=== PATIENT | male | born 1970 | race Caucasian/White ===

== ENCOUNTER 2022-08-05 10:41 | Emergency (ER) | payer BC ==
--- NOTE | 2022-08-05 12:40 | ED ---
General Adult HPI - General Chief complaint: Extremity Injury, Lower Stated complaint: R leg pain sent by Time Seen by Provider: 08/05/22 12:00 Source: patient, RN notes reviewed, old records reviewed Mode of arrival: ambulatory Limitations: no limitations - History of Present Illness Initial comments: This is a 51-year-old male who presents emergency Department complaining that he fell on his right knee and he complains of left knee pain where there is abrasion of just above his kneecap. Patient also complains of right calf pain. Patient states she's been having calf Spasms in the leg for years but because it's tender his support assistant suggested he come in and get an ultrasound. Patient denies any difficulty breathing chest pain. Patient denies any other issues at this time. - Related Data Home Medications Medication Instructions Recorded Confirmed Atorvastatin [Lipitor] 20 mg PO HS 08/05/22 08/05/22 DULoxetine HCL [Cymbalta] 30 mg PO BID 08/05/22 08/05/22 HYDROcodone/APAP 5-325MG [[place] 1 tab PO BID PRN 08/05/22 08/05/22 5-325] Lubiprostone [Amitiza] 24 mcg PO BID 08/05/22 08/05/22 Pregabalin [Lyrica] 50 mg PO BID 08/05/22 08/05/22 allopurinoL 100 mg PO HS 08/05/22 08/05/22 amLODIPine [Norvasc] 10 mg PO HS 08/05/22 08/05/22 glipiZIDE [Glucotrol] 10 mg PO AC-SUPPER 08/05/22 08/05/22 hydrOXYzine pamoate [Vistaril] 25 mg PO HS PRN 08/05/22 08/05/22 traZODone HCL [Desyrel] 50 - 100 mg PO HS PRN 08/05/22 08/05/22 Allergies Allergy/AdvReac Type Severity Reaction Status Date / Time hydromorphone [From Dilaudid] Allergy Rash/Hives Verified 08/05/22 13:13 morphine Allergy Itching Verified 08/05/22 13:13 Review of Systems ROS Statement: Those systems with pertinent positive or pertinent negative responses have been documented in the HPI. ROS Other: All systems not noted in ROS Statement are negative. Past Medical History Past Medical History: Diabetes Mellitus, Hypertension Additional Past Medical History / Comment(s): Gout,constipation, chronic back pain, neuropathy, DDD,spinal stenosis History of Any Multi-Drug Resistant Organisms: None Reported Past Surgical History: Back Surgery Additional Past Surgical History / Comment(s): cataracts, lubna carpal tunnel Past Psychological History: Anxiety, Depression Smoking Status: Current every day smoker Past Alcohol Use History: None Reported Past Drug Use History: None Reported General Exam - General Exam Comments Initial Comments: GENERAL Patient is well-developed and well-nourished. Patient is in mild distress. EYES Patient's pupils are equal and round. Extraocular motion is intact SKIN Unremarkable NEURO The patient is alert and oriented 3 PYSCH Patient has normal interpersonal interactions. MUSCULOSKELETAL Patient has full range of motion of the left knee. Patient does have some calf tenderness or swelling or redness. Patient has an abrasion that looks like it is healing well no signs of infection it measures about 2-1/2 cm in diameter it is just above the patella Limitations: no limitations Course Vital Signs 08/05/22 11:25 Temperature 98.2 F Pulse Rate 116 H Respiratory 20 Rate Blood Pressure 168/78 O2 Sat by Pulse 99 Oximetry Medical Decision Making - Medical Decision Making Was pt. sent in by a medical professional or institution (, PA, CHIP PERSON, urgent care, hospital, or fci...) When possible be specific @ -Patient's support assistant sent into the emergency department Did you speak to anyone other than the patient for history (EMS, parent, family, police, friend...)? What history was obtained from this source @ -No Did you review nursing and triage notes (agree or disagree)? Why? @ -I reviewed and agree with nursing and triage notes Were old charts reviewed (outside hosp., previous admission, EMS record, old EKG, old radiological studies, urgent care reports/EKG's, fci records)? Report findings @ -No old charts were reviewed Differential Diagnosis (chest pain, altered mental status, abdominal pain women, abdominal pain men, vaginal bleeding, weakness, fever, dyspnea, syncope, headache, dizziness, GI bleed, back pain, seizure, CVA, palpatations, mental health, musculoskeletal)? @ -Differential Musculoskeletal Muscular strain, contusion, ligament sprain, fracture, arthritis, septic arthritis, bursitis, cellulitis, muscle spasm, nerve compression, DVT, arterial occlusion, herpes zoster, electrolyte abnormality, tumor.... This is not meant to be in all inclusive list EKG interpreted by me (3pts min.). @ -As above X-rays interpreted by me (1pt min.). @ -X-ray of the knee was interpreted by myself I see no acute abnormality. CT interpreted by me (1pt min.). @ -None done U/S interpreted by me (1pt. min.). @ -Ultrasound showed no signs of DVT What testing was considered but not performed or refused? (CT, X-rays, U/S, labs)? Why? @ -None What meds were considered but not given or refused? Why? @ -None Did you discuss the management of the patient with other professionals (professionals i.e. , PA, CHIP PERSON, lab, RT, psych nurse, social work associate, grader green meat, teacher, deportation officer, case repairer)? Give summary @ -No Was smoking cessation discussed for >3mins.? @ -No Was critical care preformed (if so, how long)? @ -No Were there social determinants of health that impacted care today? How? (Homelessness, low income, unemployed, alcoholism, drug addiction, transportation, low edu. Level, literacy, decrease access to med. care, fpc, re hab)? @ -No Was there de-escalation of care discussed even if they declined (Discuss DNR or withdrawal of care, Hospice)? DNR status @ -No What co-morbidities impacted this encounter? (DM, HTN, Smoking, COPD, CAD, Cancer, CVA, ARF, Chemo, Hep., AIDS, mental health diagnosis, sleep apnea, morbid obesity)? @ -None Was patient admitted / discharged? Hospital course, mention meds given and route, prescriptions, significant lab abnormalities, going to OR and other pertinent info. @ -Patient had an x-ray and an ultrasound that was no signs of fractures no signs of DVT. Patient will have the abrasion bandaged. Undiagnosed new problem with uncertain prognosis? @ -No Drug Therapy requiring intensive monitoring for toxicity (Heparin, Nitro, Insulin, Cardizem)? @ -No Were any procedures done? @ -No Diagnosis/symptom? @ -Abrasion knee Acute, or Chronic, or Acute on Chronic? @ -Acute Uncomplicated (without systemic symptoms) or Complicated (systemic symptoms)? @ -Uncomplicated Side effects of treatment? @ -No Exacerbation, Progression, or Severe Exacerbation? @ -No Poses a threat to life or bodily function? How? (Chest pain, [place], [place], pneumonia, PE, COPD, DKA, ARF, appy, cholecystitis, CVA, Diverticulitis, Homicidal, Suicidal, threat to staff... and all critical care pts) @ -No Disposition Clinical Impression: Abrasion, knee Disposition: HOME SELF-CARE Condition: Good Instructions (If sedation given, give patient instructions): Abrasion (ED) Is patient prescribed a controlled substance at d/c from ED?: No Referrals: Leanne Varghese [Primary Care Provider] - 1-2 days Time of Disposition: 13:35
--- NOTE | 2022-08-05 12:51 | XR ---
EXAMINATION TYPE: XR knee complete RT DATE OF EXAM: 08/05/2022 12:48 PM INDICATION: Patient age:Male; 51 years old; Reason for study: Fall; [facility]. COMPARISON: None. TECHNIQUE: The Right knee(s) was examined in 3 projections. Frontal, lateral and oblique. FINDINGS: No acute fracture or dislocation. No symmetric and joint space narrowing. No significant soft tissue swelling. Small suprapatellar joint effusion. IMPRESSION: 1. No acute osseous pathology. 2. Small suprapatellar joint effusion.
--- NOTE | 2022-08-05 13:27 | US ---
EXAMINATION TYPE: US venous doppler duplex LE RT DATE OF EXAM: 08/05/2022 1:14 PM COMPARISON: NONE CLINICAL HISTORY: calf pain. Pain SIDE PERFORMED: Right TECHNIQUE: The lower extremity deep venous system is examined utilizing real time linear array sonog ira with graded compression, doppler sonography and color-flow sonography. VESSELS IMAGED: Common Femoral Vein Deep Femoral Vein Greater Saphenous Vein * Femoral Vein Popliteal Vein Small Saphenous Vein * Proximal Calf Veins (* superficial vessels) Grayscale, color doppler, spectral doppler imaging performed of the deep veins of the lower extremiti es. There is normal flow, compressibility, vascular waveforms. Right Leg: Negative for DVT IMPRESSION: No ultrasound evidence for deep venous thrombosis of the right lower extremity.
[2022-08-05 13:47] VITALS: BP 148/76; PULSE 98; RESP 16; TEMP 98
== END 2022-08-05 13:47 | disposition home or self-care (01) ==
LOC: EC 10:41
DX: S80.211A Abrasion, right knee, initial encounter (principal); I10 Essential (primary) hypertension; E11.9 Type 2 diabetes mellitus without complications; F32.A Depression, unspecified; F41.9 Anxiety disorder, unspecified; F17.200 Nicotine dependence, unspecified, uncomplicated; Z88.5 Allergy status to narcotic agent; Z88.8 Allergy status to other drugs, medicaments and biological substances; Z79.899 Other long term (current) drug therapy; W19.XXXA Unspecified fall, initial encounter
CPT/HCPCS: 99284

== ENCOUNTER → 2023-07-01 | Outpatient (CLI) | payer OTHER ==
[2023-07-01 15:46] VITALS: BP 157/80; PULSE 84; RESP 16; TEMP 97.4
--- NOTE | 2023-07-01 16:20 | P.SLEEP ---
History of Present Illness DATE: 07/01/2023 CONSULTATION/NEW PATIENT EVALUATION HISTORY OF PRESENT ILLNESS/SLEEP-WAKE EVALUATION: 52-year-old gentleman had be en evaluated in the sleep center for possible obstructive sleep apnea hypopnea syndrome and insomnia. SLEEP SCHEDULE: Usually sleep schedule is various patient does not have a regular schedule. FALLING ASLEEP: Patient has difficulties with falling asleep, no TV in bedroom, but patient has computer in bedroom which he is using during the day. DURING SLEEP: Patient sleeps by himself, no information about snoring. Patient wakes up from sleep up to 4 times with nocturia. No history of hypnogogical hallucinations, sleep paralysis, or cataplexy. DURING THE DAY/WAKE STATE: In the morning patient wake up tired, has difficulties to pay attention, has problems with memory, concentration, irritability, depression and anxiety. [place] sleepiness scale is 2. Patient does not take naps. PAST MEDICAL HISTORY: Diabetes, depression, anxiety, back problems. PAST SURGICAL HISTORY: Back surgery, surgery for cataract bilaterally. MEDICATIONS: See below. SOCIAL HISTORY: Patient smokes 1 pack a day for about 30 years, alcohol consumption none. FAMILY HISTORY: Stroke, heart problems. REVIEW OF SYSTEMS: Multiple awakenings from sleep, difficulties to initiate sleep. No fevers. No double vision. No recent chest pain. No shortness of breath. No abdominal pain. No bleeding episodes. No blood in urine. No seizure episodes. PHYSICAL EXAMINATION: GENERAL: A pleasant patient without any distress. VITAL SIGNS: Please see below, body mass index 36.6. HEENT: PERRLA, EOMI. Evaluation of oropharynx showed tongue protrudes midline, low position of soft palate Mallampati 4. NECK: Supple. No JVD. Thyroid is not palpable. 18.5 inches in circumference. LUNGS: Clear to percussion and to auscultation. Good air exchange. No wheezing or rhonchi. HEART: S1, S2 regular. No murmurs, gallops or rubs. ABDOMEN: Soft and nontender. Bowel sounds are present. No organomegaly appreciated. EXTREMITIES: No clubbing or cyanosis. SALES AGENT PROTECTIVE SERVICE: Awake, alert, and oriented x3. Cranial nerves 2 to 7 intact. There is no fasciculation or atrophy noted. No focal deficits observed. ASSESSMENT: 1. Awakenings from sleep 4 times with nocturia, extremely low position of soft palate Mallampati 4, wide neck 18.5 inches in circumference. Obstructive sleep apnea hypopnea syndrome. 2. Insomnia with difficulties to initiate sleep secondary to psychophysiological insomnia and insomnia secondary to anxiety. 3. Obesity, BMI 36.6. 4. Hypertension in the office today. 5 diabetes mellitus type 2. 6 . History of arthritis. 7. Depression. 8. Anxiety. 9 . Back problems. 10. Legally blind. 11. Status post eye surgery. PLAN: 1. Polysomnography for evaluation of patient's breathing during sleep. 2. Following plan after reading sleep study. 3. Preferable position during sleep on the side. 4. No driving if patient feels any sleepiness. Patient is aware of civil and criminal liability for unsafe driving. 5. Sleep hygiene with regular sleep time for at least 7.5-8 hours. 6. Watching and losing weight. 7. I discussed with patient psychological techniques for treatment of insomnia including stimulus control, paradoxical intention, worry time, no watching clock at night, removed computer from bedroom, as much as possible bright light exposure in the morning and less bright light in the evening. Thank you very much for referring this patient for consultation. Sincerely, Jaguar Beasley MD, PhD, FAASM. Diplomat of [place] [employer], Sleep Medicine Board by [place] [employer] [place] [employer] Yard Attendant of [facility] Past Medical History Past Medical History: Diabetes Mellitus, Hypertension Additional Past Medical History / Comment(s): Gout,constipation, chronic back pain, neuropathy, DDD,spinal stenosis History of Any Multi-Drug Resistant Organisms: None Reported Past Surgical History: Back Surgery Additional Past Surgical History / Comment(s): cataracts, lubna carpal tunnel Past Anesthesia/Blood Transfusion Reactions: No Reported Reaction Past Psychological History: Anxiety, Depression Smoking Status: Current every day smoker Past Alcohol Use History: None Reported Past Drug Use History: None Reported - Past Family History Mother Family Medical History: CVA/TIA, Hyperlipidemia, Myocardial Infarction ([place]), Mitral Valve Prolapse (MVP) Medications and Allergies Home Medications Medication Instructions Recorded Confirmed Type Atorvastatin [Lipitor] 20 mg PO HS 08/05/22 08/05/22 History DULoxetine HCL [Cymbalta] 30 mg PO BID 08/05/22 07/01/23 History HYDROcodone/APAP 5-325MG [[place] 1 tab PO BID PRN 08/05/22 07/01/23 History 5-325] Lubiprostone [Amitiza] 24 mcg PO BID 08/05/22 07/01/23 History Pregabalin [Lyrica] 50 mg PO BID 08/05/22 07/01/23 History allopurinoL 100 mg PO HS 08/05/22 07/01/23 History amLODIPine [Norvasc] 10 mg PO HS 08/05/22 07/01/23 History glipiZIDE [Glucotrol] 10 mg PO AC-SUPPER 08/05/22 07/01/23 History hydrOXYzine pamoate [Vistaril] 25 mg PO HS PRN 08/05/22 07/01/23 History traZODone HCL [Desyrel] 50 - 100 mg PO HS PRN 08/05/22 07/01/23 History Atorvastatin [Lipitor] 40 mg PO HS 07/01/23 07/01/23 History Allergies Allergy/AdvReac Type Severity Reaction Status Date / Time hydromorphone [From Dilaudid] Allergy Rash/Hives Verified 08/05/22 13:13 morphine Allergy Itching Verified 08/05/22 13:13 Physical Exam Vitals: Vital Signs Temp Pulse Resp BP Pulse Ox 07/01/23 15:15 97.4 F L 84 16 157/80 98 Intake and Output 07/01/23 07/01/23 07/01/23 06:59 14:59 22:59 Other: Weight 112.491 kg Sleep Note - Sleep Data ESS Total: 2 - Sleep Note Sleep Note: Temperature: 97.4 F Pulse Rate: 84 Respiratory Rate: 16 Blood Pressure: 157/80 SpO2: 98 Height: 5 ft 9 in Weight: 112.491 kg BMI: Neck Circumference: 18.5
== END ==
LOC: 3 N SLEEP 14:33
PROVIDERS: ATTEND Internal Medicine
DX: G47.33 Obstructive sleep apnea (adult) (pediatric) (principal); F51.04 Psychophysiologic insomnia; G47.00 Insomnia, unspecified; F41.9 Anxiety disorder, unspecified; E66.9 Obesity, unspecified; I10 Essential (primary) hypertension; E11.9 Type 2 diabetes mellitus without complications; M19.90 Unspecified osteoarthritis, unspecified site; F32.A Depression, unspecified; F17.210 Nicotine dependence, cigarettes, uncomplicated; M51.9 Unspecified thoracic, thoracolumbar and lumbosacral intervertebral disc disorder; M54.9 Dorsalgia, unspecified; H54.8 Legal blindness, as defined in USA; Z98.890 Other specified postprocedural states; Z68.36 Body mass index [BMI] 36.0-36.9, adult; Z88.5 Allergy status to narcotic agent; Z79.899 Other long term (current) drug therapy; Z79.84 Long term (current) use of oral hypoglycemic drugs
CPT/HCPCS: 99211

== ENCOUNTER 2023-08-03 19:40 | Outpatient (CLI) | payer OTHER ==
--- NOTE | 2023-08-11 15:12 | P.PCN ---
Description of Procedure: POLYSOMNOGRAPHY REPORT PROCEDURE(S)/DATE(S): Polysomnography 08/03/2023 CLINICAL: Patient has been seen in the sleep center for evaluation of obstructive sleep apnea-hypopnea syndrome. Please see my consultation. Sleep study has been done for evaluation of patient breathing during the sleep. PROCEDURE: The standard montage for clinical polysomnography included the electroencephalogram, the electrooculogram, the mentalis surface electromyography and Lead II cardiography. The respiratory battery consisted of measurements of nasal/buccal air flow, pressure transducer measurements from nose, thoracic and/or abdominal effort and intercostal surface electromyography. Video monitoring has been done to check for any parasomnia events. Nocturnal oxyhemoglobin saturations were obtained by finger oximetry. Step-veliz titration with positive airway pressure was utilized to control the respiratory events, if necessary. RESULTS: During the diagnostic sleep study sleep efficiency was close to normal 86.7%. Latency to sleep onset was normal 20.0 min. Sleep architecture showed s tage NI was increased to 15.6%, Delta sleep was absent 0%, REM sleep was significantly decreased to 10.8%. Respiratory channel showed 0 obstructive apneas, 0 mixed apneas, 0 central apneas, 48 hypopneas with lowest oxygen level 83%. Total apnea hypopnea index was 8.0. Heart rate was in the range between 71 and 76, average 73. EMG showed 4.5 periodic limb movements per hour with 0 micro-arousals per hour. IMPRESSIONS: 1. Obstructive sleep apnea hypopnea syndrome. 2. No significant periodic limb movements have been documented. 3. Hypertension in the office. 4. History of depression and anxiety. 5. History of insomnia. Please see other impressions from consultation PLAN: 1. The patient will have AutoPAP treatment for correction of respiratory abnormalities during the sleep. 2. Losing weight program. 3. Sleep hygiene with regular time in bed for at least 7-1/2 hours. 4. No driving if feeling sleepiness. 5. I will see patient for follow-up visit to explain results of the test and recommendations, check compliance with treatment, evaluate clinical response on treatment and [place] adjustments related to mask fitting pressure and humidification. Thank you very much for allowing me to participate in the management of your patient. Sincerely, Jaguar Beasley MD, PhD, FAASM. Diplomat of [place] Board [employer] Medicine, Sleep Medicine Board by [place] [employer] Fighters Dispatcher of [facility]
== END 2023-08-04 06:00 | disposition home or self-care (01) ==
LOC: 3 N SLEEP 19:40
PROVIDERS: ATTEND Internal Medicine
DX: G47.33 Obstructive sleep apnea (adult) (pediatric) (principal); I10 Essential (primary) hypertension; G47.10 Hypersomnia, unspecified; F32.A Depression, unspecified; F41.9 Anxiety disorder, unspecified; Z88.5 Allergy status to narcotic agent; Z79.899 Other long term (current) drug therapy
CPT/HCPCS: 95810

== ENCOUNTER → 2024-02-21 | Outpatient (CLI) | payer MEDICARE ==
[2024-02-22 03:14] LABS: ALT 12 U/L (10-49); AST 20 U/L (14-35); Albumin 4.5 g/dL (3.8-4.9); Albumin/Globulin Ratio 1.67 Ratio (1.60-3.17); Alkaline Phosphatase 68 U/L (41-126); BUN/Creat Ratio 18.38 Ratio (12.00-20.00); Blood Urea Nitrogen 23.9 mg/dL (9.0-27.0); Calcium 10.3 mg/dL (8.7-10.3); Carbon Dioxide 26.6 mmol/L (21.6-31.8); Chloride 102 mmol/L (96-109); Globulin 2.7 g/dL (1.6-3.3); Glucose 93 mg/dL (70-110); Potassium 4.9 mmol/L (3.5-5.5); Sodium 140 mmol/L (135-145); Total Bilirubin 0.3 mg/dL (0.3-1.2); Total Protein 7.2 g/dL (6.2-8.2)
== END | disposition home or self-care (01) ==
LOC: LABWHC1 14:35
PROVIDERS: ATTEND Family Medicine
DX: E11.59 Type 2 diabetes mellitus with other circulatory complications (principal)
CPT/HCPCS: 36415; 80053; 82043; 82570

== ENCOUNTER → 2024-02-24 | Outpatient (CLI) | payer MEDICARE, OTHER ==
[2024-02-24 15:51] VITALS: BP 139/75; PULSE 78; RESP 18; TEMP 97.2
--- NOTE | 2024-02-24 16:39 | P.PROGSL ---
Subjective DATE: 02/24/2024 FOLLOW UP VISIT. Patient with obstructive sleep apnea hypopnea syndrome return to sleep center for follow-up visit. Recently patient had sleep study which documented obstructive sleep apnea hypopnea syndrome. Patient was initiated on PAP therapy and today is first visit after treatment was started. Patient was able to use PAP equipment every night for the whole night. The patient does not have significant problems with the mask, PAP pressure and humidification. [place] sleepiness scale is 1. I checked information from PAP unit. PAP unit pressure 5-15, average 8.9 cm H2O. Usage is 90% and 77% for more then 4 hours, average 5.25 hours per night. Leak is 23.3 l/m, which is in acceptable range. Apnea Hypopnea Index is 2.8, which is normal. MEDICATIONS: Please see below During physical exam: GENERAL: A pleasant patient without any distress. VITAL SIGNS: Please see below, weight 217.0 pounds. HEENT: PERRLA, EOMI.low position of soft palate, Mallapati 4 . NECK: Supple. No JVD. LUNGS: Clear to percussion and to auscultation. Good air exchange. No wheezing or rhonchi. HEART: S1, S2 regular. ABDOMEN: Soft and nontender.[] EXTREMITIES: No clubbing or cyanosis. [employer]: Awake, alert, and oriented x3. No focal deficit. Impressions: 1. Obstructive sleep apnea-hypopnea syndrome. Patient demonstrated good compliance with treatment, benefiting from treatment. 2. Insomnia. 3. Obesity. 4. Diabetes mellitus type 2. 5. Depression. 6. Anxiety. 7. Back problems. 8. Legally blind. 9. Status post eye surgery. Plan: 1. Continue using PAP equipment every night for the whole night. 2. To change air filter at least 1-2 times per month. 3. PAP unit should stay lower then position of the head. 4. Advised patient to remove all remaining water from humidifier canister daily and make it dry after each usage. Refill canister with fresh distilled water before each usage. 5. Sleep hygiene with regular time in bed for at least 8 hours. 6. Precautions related to driving. No driving if feel any sleepiness. 7. I will maintain prescription for PAP supplies including mask, tube, filters. 8. Follow up visit in 8 months or earlier if patient has any problems. 9. Watching and losing weight. 10. I again discussed psychological techniques for treatment of insomnia including stimulus control, paradoxical intention, no watching clock, regularize schedule. Thank you very much for allowing me to participate in the management of your patient. Jaguar Beasley MD, PhD, FAASM. Diplomat of [place] [employer], Sleep Medicine Board by [place] [employer] Mobile Developer of [facility] [place] cc: Ty Salazar DO Objective - Vital Signs Vital Signs: Vital Signs Temp 97.2 F L 02/24/24 15:51 Pulse 78 02/24/24 15:51 Resp 18 02/24/24 15:51 BP 139/75 02/24/24 15:51 Pulse Ox 96 02/24/24 15:51 FiO2 Intake & Output 02/23/24 02/24/24 02/24/24 18:59 06:59 18:59 Weight 98.43 kg Home Medications: Home Medications Medication Instructions Recorded Confirmed Type Atorvastatin [Lipitor] 20 mg PO HS 08/05/22 08/05/22 History DULoxetine HCL [Cymbalta] 30 mg PO BID 08/05/22 07/01/23 History HYDROcodone/APAP 5-325MG [[place] 1 tab PO BID PRN 08/05/22 07/01/23 History 5-325] Lubiprostone [Amitiza] 24 mcg PO BID 08/05/22 07/01/23 History Pregabalin [Lyrica] 50 mg PO BID 08/05/22 07/01/23 History allopurinoL 100 mg PO HS 08/05/22 07/01/23 History amLODIPine [Norvasc] 10 mg PO HS 08/05/22 07/01/23 History glipiZIDE [Glucotrol] 10 mg PO AC-SUPPER 08/05/22 07/01/23 History hydrOXYzine pamoate [Vistaril] 25 mg PO HS PRN 08/05/22 07/01/23 History traZODone HCL [Desyrel] 50 - 100 mg PO HS PRN 08/05/22 07/01/23 History Atorvastatin [Lipitor] 40 mg PO HS 07/01/23 07/01/23 History
== END ==
LOC: 3 N SLEEP 14:54
PROVIDERS: ATTEND Internal Medicine
DX: G47.33 Obstructive sleep apnea (adult) (pediatric) (principal); G47.00 Insomnia, unspecified; E66.9 Obesity, unspecified; E11.9 Type 2 diabetes mellitus without complications; F32.A Depression, unspecified; F41.9 Anxiety disorder, unspecified; M53.9 Dorsopathy, unspecified; H54.8 Legal blindness, as defined in USA; Z98.890 Other specified postprocedural states; Z99.89 Dependence on other enabling machines and devices; Z88.5 Allergy status to narcotic agent; Z79.84 Long term (current) use of oral hypoglycemic drugs
CPT/HCPCS: 99212